=== PATIENT | female | born 1980 | race American Indian/Alaskan Native ===

== ENCOUNTER 2021-12-19 13:30 | Emergency (ER) | payer SELFPAY ==
[2021-12-19] MEDS ORDERED: ASPIRIN 325 MG TAB PO ONE (13:44)
--- NOTE | 2021-12-19 14:23 | XRay Report ---
CHEST 2 VIEWS INDICATION / CLINICAL INFORMATION: chest pain. COMPARISON: None available. FINDINGS: SUPPORT DEVICES: None. HEART / MEDIASTINUM: No significant abnormality. LUNGS / PLEURA: No significant pulmonary or pleural abnormality. No pneumothorax. ADDITIONAL FINDINGS: No significant additional findings. IMPRESSION: 1. No acute findings. Signer Name: Austen Rodríguez MD Signed: 12/19/2021 2:14 PM Workstation Name: [facility]
[2021-12-19 15:07] LABS: Hematocrit 31.5 % (30.3-42.9); Hemoglobin 9.6 gm/dl (10.1-14.3); Mean Corpuscular HGB Conc 30 % (30-34); Mean Corpuscular Volume 71 fl (79-97); Platelet Count 344 K/mm3 (140-440); Red Blood Count 4.44 M/mm3 (3.65-5.03)
[2021-12-19 15:08] LABS: Red Cell Distribution Width 27.1 % (13.2-15.2)
[2021-12-19 15:14] LABS: Alanine Aminotransferase 24 units/L (7-56); Albumin 4.2 g/dL (3.9-5); BUN/Creatinine Ratio 12; Blood Urea Nitrogen 11 mg/dL (7-17); Hemolysis Index 3
[2021-12-19 15:47] LABS: Basophils % (Manual) 0 % (0.0-1.8); Hypochromasia 2+; Total Cells Counted 100
[2021-12-19 15:48] LABS: Anisocytosis 3+; Platelet Estimate Consistent w Auto
--- NOTE | 2021-12-20 00:40 | Emergency Department Report ---
ED Chest Pain HPI - General Chief Complaint: Chest Pain Stated Complaint: CHEST PAIN Time Seen by Provider: 12/20/21 00:35 Source: patient Mode of arrival: Ambulatory Limitations: No Limitations - History of Present Illness Initial Comments: 41-year-old morbidly obese female who presented with intermittent chest pain that has been going on since March about several months ago. Patient have had complete work-up with cardiology and [facility] emergency room. 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 Pt recently had sleep study and just waiting for result. No other modifying or associated factors. MD Complaint: chest pain - Related Data Previous Rx's Medication Instructions Recorded Last Taken Type hydrOXYzine PAMOATE [Vistaril] 50 mg PO Q6HR PRN 5 Days #20 12/20/21 Unknown Rx capsule NS predniSONE [Deltasone] 20 mg PO BID 7 Days #14 tab NS 12/20/21 Unknown Rx Allergies Allergy/AdvReac Type Severity Reaction Status Date / Time No Known Allergies Allergy Verified 12/19/21 13:42 Heart Score - HEART Score History: Slightly suspicious EKG: Normal Age: < 45 Risk factors: No known risk factors Troponin: < normal limit HEART Score: 0 - EKG Read Time Time EKG Completed: 08:44 EKG Read Time: 21:00 - Critical Actions Critical Actions: 0-3 pts:0.9-1.7%risk of adverse cardiac event.Candidate for discharge ED Review of Systems ROS: Stated complaint: CHEST PAIN Other details as noted in HPI Comment: All other systems reviewed and negative Cardiovascular: chest pain ED Past Medical Hx - Medications Home Medications: Home Medications Medication Instructions Recorded Confirmed Last Taken Type hydrOXYzine PAMOATE [Vistaril] 50 mg PO Q6HR PRN 5 Days #20 12/20/21 Unknown Rx capsule NS predniSONE [Deltasone] 20 mg PO BID 7 Days #14 tab NS 12/20/21 Unknown Rx ED Physical Exam - General Limitations: No Limitations General appearance: alert, in no apparent distress - Head Head exam: Present: normal inspection - Eye Eye exam: Present: normal appearance Pupils: Present: normal accommodation - ENT ENT exam: Present: normal exam, normal orophraynx, mucous membranes moist - Neck Neck exam: Present: normal inspection, full ROM. Absent: tenderness - Respiratory Respiratory exam: Present: normal lung sounds bilaterally. Absent: respiratory distress, accessory muscle use - Cardiovascular Cardiovascular Exam: Present: regular rate, normal rhythm, normal heart sounds - GI/Abdominal GI/Abdominal exam: Present: soft, normal bowel sounds. Absent: distended, tenderness - Extremities Exam Extremities exam: Present: normal inspection, normal capillary refill. Absent: tenderness - Back Exam Back exam: Present: normal inspection - Neurological Exam Neurological exam: Present: alert, oriented X3 - Psychiatric Psychiatric exam: Present: normal affect, normal mood ED Course Vital Signs 12/19/21 13:42 Temperature 97.9 F Pulse Rate 71 Respiratory 20 Rate Blood Pressure 125/71 O2 Sat by Pulse 99 Oximetry - Reevaluation(s) Reevaluation #1: 12/20/21 00:41 here with chest pain x the last 7 months and have had complete cardiac workup at outside ED and have follow up and evaluated by Cardiology with no cardiac diagnosis--differential diagnosis could include but not limited to myocardial infarction, pulmonary embolism, pulmonary hypertension, obstructive sleep apnea, pleurodynia, pleurisy, costochondritis, pneumothorax or generalized anxiety and or acid reflux or esophageal spasm. However in this patient with chest wall tenderness this is likely muscular in nature considering the negative cardiac work-up that patient has had in the past. We will go ahead and review all of the routine cardiopulmonary order that includes serial troponin and chest x-ray and CBC, CMP for any infectious or electrolyte cause. Reevaluation #2: 12/20/21 00:46 All lab reviewed to be within normal limits including serial troponin which supported the fact that this is unlikely cardiac so we will go ahead and discharge patient home on steroids as anti-inflammatory and Vistaril as anti- anxiety. LEONARDO score - Leonardo Score Age > 65: (0) No Aspirin use within the Past 7 Days: (0) No 3 or more CAD Risk Factors: (0) No 2 or more Angina events in past 24 hrs: (0) No Known CAD with more than 50% Stenosis: (0) No Elevated Cardiac Markers: (0) No ST Deviation Greater than 0.5mm: (0) No LEONARDO Score: 0 ED Medical Decision Making - Lab Data Result diagrams: 12/19/21 14:22 12/19/21 14:22 - EKG Data -: EKG Interpreted by Al EKG shows normal: sinus rhythm - EKG Data Interpretation: nonspecific ST-T wave trey 12/20/21 00:48 EKG noted with sinus rhythm at a rate of 55 bpm with nonspecific T wave abnormality and no ST elevation or depression noted in this abnormal ECG Critical care attestation.: If time is entered above; I have spent that time in minutes in the direct care of this critically ill patient, excluding procedure time. ED Disposition Clinical Impression: Non-cardiac chest pain, Costochondritis Disposition: 01 HOME / SELF CARE / HOMELESS Is pt being admited?: No Does the pt Need Aspirin: No Condition: Stable Instructions: Nonspecific Chest Pain, Adult, Costochondritis, [id number], Chest Wall Pain, Lkoh-az-[id number] Additional Instructions: Take your steroids and completed as prescribed to help your symptoms Increase your daily fluid to help your hydration Call and schedule follow-up with your primary doctor in the next 3 to 5 days for progress Please do not hesitate to call or return to emergency if your symptoms worsen Prescriptions: predniSONE [Deltasone] 20 mg PO BID 7 Days #14 tab NS hydrOXYzine PAMOATE [Vistaril] 50 mg PO Q6HR PRN 5 Days #20 capsule NS PRN Reason: Pain, Moderate (4-6) Time of Disposition: 00:53
[2021-12-20 01:20] VITALS: BP 145/78
--- NOTE | 2021-12-21 12:02 | Electrocardiograph Report ---
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
--- NOTE | 2021-12-21 12:06 | Electrocardiograph Report ---
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
== END 2021-12-20 01:10 | disposition home or self-care (01) ==
LOC: ED 13:30
DX: R07.89 Other chest pain (principal); M94.0 Chondrocostal junction syndrome [Tietze]
CPT/HCPCS: 36415; 71046; 80053; 84484; 85007; 85025; 93005; 99284